=== PATIENT | female | born 1970 | race Caucasian/White ===

== ENCOUNTER 2019-11-29 14:48 | Emergency (ER) | payer BC, SELFPAY ==
[2019-11-29 14:50] VITALS: BP 127/78; PULSE 100; RESP 20; TEMP 36.5; O2SAT 98
--- NOTE | 2019-11-29 16:03 | ED.ALLEREA ---
HPI - Allergic Reaction General Chief complaint: Allergic Reaction <LIZBETH Barber Last Filed: 11/29/19 17:41> Stated complaint: Insect bite <LIZBETH Barber Last Filed: 11/29/19 17:41> Time Seen by Provider: 11/29/19 15:44 <LIZBETH Barber Last Filed: 11/29/19 17:41> Source: patient <LIZBETH Barber Last Filed: 11/29/19 17:41> Mode of arrival: ambulatory <LIZBETH Barber Last Filed: 11/29/19 17:41> Limitations: no limitations <LIZBETH Barber Last Filed: 11/29/19 17:41> History of Present Illness HPI narrative: This is a 49-year-old female that presents the emergency department for hives that started just prior to arrival. Reports she was walking out of her house to go to work and started to feel some burning of her left forearm. Reports she then noted hives to the area and itching. Reports she is starting to have some itching on the left side of her abdomen as well. Does not report any new soaps, lotions or detergents. No new medications. Denies fever, facial swelling, or shortness of breath. <LIZBETH Barber Last Filed: 11/29/19 17:41> Related Data Home medications: Home Medications Medication Instructions Recorded Confirmed No Home Medications 11/29/19 11/29/19 <LIZBETH Barber Last Filed: 11/29/19 17:41> Allergies/adverse reactions: Allergies Allergy/AdvReac Type Severity Reaction Status Date / Time strawberry Allergy Swelling Verified 11/29/19 15:29 of Lip/Tongue/Throat <LIZBETH Barber Last Filed: 11/29/19 17:41> Review of Systems Review of Systems: Narrative: CONSTITUTIONAL: Denies fever SKIN: Reports rash and itching. <LIZBETH Barber Last Filed: 11/29/19 17:41> All systems reviewed & are unremarkable except as noted in HPI and below <Johnna Vera PA-C - Last Filed: 11/29/19 17:41> PMFSH Past Medical History Medical History: Medical History (Updated 11/29/19 @ 17:41 by Johnna Vera PA-C) No active medical problems <Johnna Vera PA-C - Last Filed: 11/29/19 17:41> Social History Social History: Social History (Updated 11/29/19 @ 16:06 by Johnna Vera PA-C) Smoking status: Current every day smoker <Johnna Vera PA-C - Last Filed: 11/29/19 17:41> Exam Narrative: Exam Narrative: GENERAL: Well-appearing, well-nourished, and in no acute distress. HEAD: Normocephalic, atraumatic. No facial swelling EYES: EOMI. CHEST: Airway patient ABDOMEN: Soft, nontender, nondistended, normal active bowel sounds. EXTREMITIES: Normal range of motion. No edema. SKIN: Warm, dry. Wheals to the left forearm and left side of abdomen NEURO: No focal deficits. Alert and oriented x3. PSYCH: Normal mood and affect <Johnna Vera PA-C - Last Filed: 11/29/19 17:41> Course Vital Signs Vital signs: Vital Signs Temperature 97.7 F 11/29/19 14:50 Pulse Rate 100 11/29/19 14:50 Respiratory Rate 11/29/19 14:50 Blood Pressure 127/78 11/29/19 14:50 Pulse Oximetry 98 11/29/19 14:50 Temperature 97.7 F 11/29/19 14:50 Pulse Rate 100 11/29/19 14:50 Respiratory Rate 11/29/19 14:50 Blood Pressure 127/78 11/29/19 14:50 Pulse Oximetry 98 11/29/19 14:50 <Johnna Vera PA-C - Last Filed: 11/29/19 17:41> Vital Signs Temperature 97.7 F 11/29/19 14:50 Pulse Rate 100 11/29/19 14:50 Respiratory Rate 11/29/19 14:50 Blood Pressure 127/78 11/29/19 14:50 Pulse Oximetry 98 11/29/19 14:50 Temperature 97.7 F 11/29/19 14:50 Pulse Rate 100 11/29/19 14:50 Respiratory Rate 20 11/29/19 14:50 Blood Pressure 127/78 11/29/19 14:50 Pulse Oximetry 98 11/29/19 14:50 <Laureen Kelly MD - Last Filed: 11/29/19 18:33> MDM - Allergic Reaction MDM Narrative Medical decision making narrative: Patient presents to the emergency department for hives. Airway
[2019-11-29] MEDS: FAMOTIDINE 20 MG TABLET PO (16:07)
== END 2019-11-29 17:57 | disposition home or self-care (01) ==
PROVIDERS: Emergency Provider Emergency Medicine; PCP Nurse Practitioner Family
DX: L50.9 Urticaria, unspecified (principal); F17.200 Nicotine dependence, unspecified, uncomplicated
CPT/HCPCS: 99283; A9270

== ENCOUNTER 2020-02-01 19:30 | Emergency (ER) | payer BC, SELFPAY ==
--- NOTE | ~2020-02-01 | XR_ITS ---
EXAMINATION: XR wrist RT 2V EXAM DATE: 02/01/2020 19:48 INDICATION: Right metacarpal pain. No known recent injury provided at this time. TECHNIQUE: Frontal and lateral projections of the right wrist. There is no prior study for comparis on. FINDINGS: There are no acute fractures or dislocations identified. There is no subcutaneous gas. Th e soft tissue is unremarkable. 2 rings, on the 4th and 5th digits. There are no bony erosions ident ified. IMPRESSION: 1. Unremarkable XR wrist RT 2V exam. Reviewed, dictated and finalized at location A.
[2020-02-01 19:33] VITALS: BP 141/76; PULSE 89; RESP 16; TEMP 36.1; O2SAT 100
--- NOTE | 2020-02-01 20:24 | ED.UPPEXIN ---
HPI - Extremity Injury (Upper) General Chief Complaint: Extremity Injury, Upper Stated Complaint: R wrist pain Time Seen by Provider: 02/01/20 19:39 Source: patient Mode of arrival: ambulatory Limitations: no limitations History of Present Illness HPI narrative: Patient presents with chief complaint of right wrist discomfort to the dorsal aspect with gripping lifting and pulling intermittently over the past 6 months. Patient states sometimes when she does those actions she feels a shooting sensation in the center of her wrist down her arm. Patient denies direct trauma to her wrist. 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 Patient states she is not sure what to do with her wrist to help and improve. Patient has not discussed her symptoms with her primary care. Review of Systems Review of Systems: Narrative: CONSTITUTIONAL: Denies fever, chills, or sweats. EYES: Denies visual changes, redness, or discharge. ENT: Denies rhinorrhea, congestion, sore throat, or otalgia. CARDIOVASCULAR: Denies chest pain, palpitations, or edema. RESPIRATORY: Denies cough or dyspnea. GASTROINTESTINAL: Denies abdominal pain, nausea, vomiting, or diarrhea. GENITOURINARY: Denies dysuria or hematuria. SKIN: Denies rash or itching. MUSCULOSKELETAL: Reports right wrist pain denies back pain or myalgia. NEUROLOGIC: Denies headache, numbness, dizziness, or weakness. PSYCHIATRIC: Denies anxiety or depression. [facility] Family History Family History (Updated 05/12/16 @ 16:08 by DOCTOR UNKNOWN) Grandparent Asthma Family history of cardiovascular disease Family history of pancreatic cancer Family history of heart disease in male family member before age 55 Mother Family history of chronic obstructive pulmonary disease Family history of lung cancer Family history of congestive heart failure Social History Social History Smoking status: Heavy tobacco smoker Second hand tobacco smoke exposure: No Alcohol intake: never Gender identity (if verbalized by the patient): Female Exam Narrative: Exam Narrative: GENERAL: Well-appearing, well-nourished, and in no acute distress. HEAD: Normocephalic, atraumatic. EYES: PERRLA and EOMI. ENT: Nares clear, no rhinorrhea or epistaxis. Mucous membranes moist. NECK: Supple. No adenopathy or masses. No carotid bruits or JVD CHEST: No respiratory distress. No tachypnea or shallow respirations EXTREMITIES: No swelling appreciated to the right wrist. Patient reports tenderness to the dorsal aspect center area of right wrist. Tinel's and Phalen's negative. De Quervain's test negative. normal range of motion. No edema. Staff Educator strength intact. SKIN: Warm, dry, no rash. NEURO: No focal deficits. Alert and oriented x3. PSYCH: Normal mood and affect. Course Vital Signs Vital signs: Vital Signs Temperature 97 F L 02/01/20 19:33 Pulse Rate 89 02/01/20 19:33 Respiratory Rate 16 02/01/20 19:33 Blood Pressure 141/76 H 02/01/20 19:33 Pulse Oximetry 100 02/01/20 19:33 Temperature 97 F L 02/01/20 19:33 Pulse Rate 89 02/01/20 19:33 Respiratory Rate 16 02/01/20 19:33 Blood Pressure 141/76 H 02/01/20 19:33 Pulse Oximetry 100 02/01/20 19:33 MDM - Extremity Injury (Upper) MDM Narrative Medical decision making narrative: Patient declined work note with instructions to keep easy on the right wrist for the next week. Discussed with patient our ICE instructions and the need to follow-up with her primary care business performance specialist for reevaluation if symptoms persist. Patient denies having diabetes, intolerance to NSAIDs, ulcers, renal failure. Differential Diagnosis Differential diagnosis: Likely sprain and strain of wrist and fracture of wrist Imaging Data Radiologist's impression: ITS Impressions Wrist X-Ray 02/01/20 19:57 IMPRESSION: 1. Unremarkable XR wrist RT 2V exam. Discharge Plan Discharge Clinical Impression: Brandi
--- NOTE | 2020-02-01 20:42 | PC.NURSE ---
no wrist splint available-PA aware- 3 nohemy wrap applied
[2020-02-01 20:55] VITALS: BP 129/78; PULSE 81; RESP 18; O2SAT 97
== END 2020-02-01 20:55 | disposition home or self-care (01) ==
PROVIDERS: Emergency Provider Emergency Medicine; PCP Nurse Practitioner Family
DX: M77.9 Enthesopathy, unspecified (principal); F17.200 Nicotine dependence, unspecified, uncomplicated
CPT/HCPCS: 73100; 99283

== ENCOUNTER 2020-06-15 06:47 | Outpatient (NON) | payer BC, SELFPAY ==
[2020-06-16 01:24] LABS: SARS-CoV-2 RNA PCR Positive
== END 2020-06-15 06:48 ==
LOC: ANHCOVIDDT 06:47
PROVIDERS: PCP Nurse Practitioner Family; Visit Provider Nurse Practitioner Family
DX: U07.1 COVID-19 (principal)
CPT/HCPCS: 87635; C9803; U0003

== ENCOUNTER 2021-01-28 21:22 | Emergency (ER) | payer BC, SELFPAY ==
[2021-01-28] VITALS (10 sets, daily range): BP systolic 154–168; BP diastolic 84–94; PULSE 68–90; RESP 17–29; TEMP 36.6–37.4; O2SAT 97–100
--- NOTE | 2021-01-28 22:28 | ED.GENADULT ---
HPI - General Adult General Chief complaint: Upper Respiratory Infection Stated complaint: sinus infection, left side of face numb Time Seen by Provider: 01/28/21 22:17 History of Present Illness HPI narrative: Patient is a 50-year-old female presents to emergency department chief complaint of left-sided facial numbness. The patient reports that she has numbness that goes from the left side of her chin to her left ear. The patient states it began this afternoon patient reports she is currently being treated for sinusitis after she has been having pain in the left maxillary sinus area and has had clear nasal discharge. Patient reports her primary care physician started her on Augmentin and the patient reports that she has been compliant with the antibiotics. Patient denies fever denies chills reports that she has no focal motor deficits with this. Patient difficulty with extraocular motion. Changes in visual acuity Related Data Home Medications Medication Instructions Recorded Confirmed amoxicillin-pot clavulanate tablet 01/28/21 Allergies Allergy/AdvReac Type Severity Reaction Status Date / Time raspberry Allergy Swelling Verified 01/28/21 21:39 of Lip/Tongue/Throat strawberry Allergy Swelling Verified 01/28/21 21:39 of Lip/Tongue/Throat Review of Systems Review of Systems: A 10 system review of systems was completed on the patient and is negative except for what is stated in the HPI. Nursing and ancillary documentation was reviewed. [facility] Family History Family History Grandparent Asthma Family history of cardiovascular disease Family history of pancreatic cancer Family history of heart disease in male family member before age 55 Mother Family history of chronic obstructive pulmonary disease Family history of lung cancer Family history of congestive heart failure Social History Social History Smoking status: Heavy tobacco smoker Second hand tobacco smoke exposure: No Alcohol intake: never Gender identity (if verbalized by the patient): Female Exam Narrative: GENERAL: Well-appearing, well-nourished, and in no acute distress. HEAD: Normocephalic, atraumatic. EYES: PERRLA and EOMI. ENT: Nares clear, no rhinorrhea or epistaxis. Mucous membranes moist. NECK: Supple. CHEST: Clear to auscultation. No respiratory distress. HEART: Regular rate and rhythm. No murmur heard. Normal peripheral pulses. ABDOMEN: Soft, nontender, nondistended, normal active bowel sounds. EXTREMITIES: Normal range of motion. No edema. SKIN: Warm, dry, no rash. NEURO: No focal deficits. Alert and oriented x3. Slight decrease sensation in the V3 distribution of the trigeminal nerve PSYCH: Normal mood and affect. Course Vital Signs Vital signs: Vital Signs Temperature 37.4 C 01/28/21 21:27 Pulse Rate 88 01/28/21 21:27 Respiratory Rate 18 01/28/21 21:27 Blood Pressure 154/90 H 01/28/21 21:27 Pulse Oximetry 100 01/28/21 21:27 Temperature 37.4 C 01/28/21 21:27 Pulse Rate 72 01/28/21 22:16 Respiratory Rate 19 01/28/21 22:16 Blood Pressure 163/93 H 01/28/21 22:16 Pulse Oximetry 99 01/28/21 22:16 Medical Decision Making Vital Signs Vital Signs: Vital Signs Temperature 37.4 C 01/28/21 21:27 Pulse Rate 88 01/28/21 21:27 Respiratory Rate 18 01/28/21 21:27 Blood Pressure 154/90 H 01/28/21 21:27 Pulse Oximetry 100 01/28/21 21:27 Temperature 37.4 C 01/28/21 21:27 Pulse Rate 72 01/28/21 22:16 Respiratory Rate 19 01/28/21 22:16 Blood Pressure 163/93 H 01/28/21 22:16 Pulse Oximetry 99 01/28/21 22:16 Discharge Plan Discharge Clinical Impression: Trigeminal neuralgia of left side of face, Paresthesia Sinusitis Qualifiers: Sinusitis location: unspecified location Chronicity: acute Recurrence: not
== END 2021-01-28 23:05 | disposition home or self-care (01) ==
PROVIDERS: Emergency Provider Emergency Medicine; PCP Nurse Practitioner Family
DX: J01.90 Acute sinusitis, unspecified (principal); G50.0 Trigeminal neuralgia; F17.210 Nicotine dependence, cigarettes, uncomplicated
CPT/HCPCS: 99281

== ENCOUNTER → 2021-02-17 09:39 | Outpatient (CLI) | payer BC, SELFPAY ==
--- NOTE | ~2021-02-17 | MM_ITS ---
EXAMINATION: MM screening sang BI w chanel HISTORY: Screening mammogram TECHNIQUE: Craniocaudal and mediolateral oblique 3-D tomosynthesis images were obtained and synthetic 2-D images were generated. CAD analysis was submitted and interpreted. COMPARISON: No prior mammogram is available for comparison at this institution. BREAST PARENCHYMAL COMPOSITION: The breasts are heterogeneously dense, which may obscure small masses . FINDINGS: RIGHT BREAST: There are masses in the posterior third of the upper-outer quadrant breast. Position, t here is an asymmetry in the middle third of the lower breast 5.5 cm from the nipple on the craniocaud al view. LEFT BREAST: A mass is present in the posterior third outer breast 8 cm from the nipple. IMPRESSION: 1. Bilateral breast findings as described above. 2. Additional mammographic views and possible breast ultrasound are recommended. BI-RADS Category 0: Incomplete: Needs additional imaging evaluation. Reviewed, dictated and finalized at location A. IMPRESSION: 1. Bilateral breast findings as described above. 2. Additional mammographic views and possible breast ultrasound are recommended . BI-RADS Category 0: Incomplete: Needs additional imaging evaluation.
== END ==
PROVIDERS: PCP Nurse Practitioner Family; Visit Provider Nurse Practitioner Family
DX: Z12.31 Encounter for screening mammogram for malignant neoplasm of breast (principal); R92.8 Other abnormal and inconclusive findings on diagnostic imaging of breast
CPT/HCPCS: 77063; 77067

== ENCOUNTER 2021-02-24 09:35 | Outpatient (CLI) | payer BC, SELFPAY ==
--- NOTE | ~2021-02-24 | MMUS_ITS ---
EXAMINATION: MM diagnostic sang BI w chanel, US breast BI complete HISTORY: Follow-up breast asymmetries/masses TECHNIQUE: Additional 3-D tomosynthesis images of the breasts were performed and synthetic 2-D images were generated. CAD analysis was submitted and interpreted. High resolution complete bilateral breas t ultrasound was performed. COMPARISON: 02/17/2021 BREAST PARENCHYMAL COMPOSITION: Breast composed of scattered areas of fibroglandular density. FINDINGS: MAMMOGRAPHIC FINDINGS: There is focal asymmetry in the upper outer quadrant of the right breast anteriorly with possible arc hitectural distortion. No discrete associated mass. There are several masses in both breasts centered in the upper outer quadrants with central areas of lucency, most likely benign. ULTRASOUND: Right breast ultrasound: At 1:00, 3 cm from the nipple, there is a 4 mm cyst. At 7:00, 6 cm from the nipple, there is a 7 mm intramammary lymph node. At 10:00, 7 cm from the nipple, there is an 8 mm int ramammary lymph node. At 10:00, 5 cm from the nipple, there is a ill-defined poorly circumscribed mas s with posterior shadowing measuring approximately 1.5 cm. No internal vascularity. Left breast ultrasound: At 2:00, 5 cm from the nipple, there is a 5 mm cyst. At 2:00, 13 cm from the nipple, there is a 1.6 cm lymph node with normal fatty hilum. At 3:00, 7 cm from the nipple, there is a 9 mm intramammary lymph node. No suspicious masses in the left breast to suggest malignancy IMPRESSION: 1. Poorly circumscribed right breast mass at 10:00, 5 cm from the nipple with posterior shadowing. 2. Ultrasound-guided right breast biopsy recommended. BI-RADS category 4, suspicious findings. Reviewed, dictated and finalized at location A. IMPRESSION: 1. Poorly circumscribed right breast mass at 10:00, 5 cm from the nipple with p osterior shadowing. 2. Ultrasound-guided right breast biopsy recommended. BI-RADS category 4, suspicious findings.
== END 2021-02-24 09:36 ==
LOC: MICIMG 09:36
PROVIDERS: PCP Nurse Practitioner Family; Visit Provider Nurse Practitioner Family
DX: R92.8 Other abnormal and inconclusive findings on diagnostic imaging of breast (principal)
CPT/HCPCS: 76641; 77062; 77066; G0279

== ENCOUNTER 2021-03-17 10:02 | Outpatient (CLI) | payer BC, SELFPAY ==
--- NOTE | ~2021-03-17 | US_ITS ---
Consultation US DATE: 03/17/2021 10:59 INDICATION: Patient presented for ultrasound-guided biopsy at 10:00 where a poorly circumscribed righ t mass was reported on 02/24/2021 breast ultrasound examination. TECHNIQUE: Real-time imaging of right breast COMPARISON: 02/24/2021 bilateral complete breast ultrasound FINDINGS: I personally scanned the patient and was unable to identify any suspicious mass or suspicio us shadowing. 6 month ultrasound follow-up is recommended. IMPRESSION: BI-RADS Category 3: Probably benign Recommendation: 6 month follow right breast ultrasound examination is recommended Reviewed, dictated and finalized at Location A. Reviewed, dictated and finalized at location A. IMPRESSION: BI-RADS Category 3: Probably benign Recommendation: 6 month follow right breast ultrasound examination is recommend ed
== END 2021-03-17 10:03 | disposition home or self-care (01) ==
LOC: ANHIMG 10:04
PROVIDERS: PCP Nurse Practitioner Family; Visit Provider Nurse Practitioner Family
DX: R92.8 Other abnormal and inconclusive findings on diagnostic imaging of breast (principal)
CPT/HCPCS: 99199

== ENCOUNTER 2021-07-06 11:10 | Emergency (ER) | payer BC, SELFPAY ==
[2021-07-06 11:52] VITALS: BP 152/87; PULSE 76; RESP 18; TEMP 36.5; O2SAT 99
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
== END 2021-07-06 12:47 | disposition home or self-care (01) ==
PROVIDERS: Emergency Provider Nurse Practitioner Family; PCP Nurse Practitioner Family
DX: M54.6 Pain in thoracic spine (principal); F17.200 Nicotine dependence, unspecified, uncomplicated
CPT/HCPCS: 99213; G0463

== ENCOUNTER 2021-11-01 11:10 | Emergency (ER) | payer BC, SELFPAY ==
--- NOTE | 2021-11-01 11:30 | ED.URI ---
HPI - URI/Sore Throat General Chief Complaint: Ear Stated Complaint: ear/jaw pain,face pressure Time Seen by Provider: 11/01/21 11:34 Source: patient and RN notes reviewed Mode of arrival: ambulatory Limitations: no limitations History of Present Illness HPI Narrative: 51 y/o female presented for c/o left ear pain, onset yesterday. Endorses sinus congestion and drainage, with facial pressure and headache. Denies cough, sob, wheezing, n/v/d/f/c. Has not taken anything for symptoms. She is not boosted for covid, not vaccinated for the flu Related Data Allergies Allergy/AdvReac Type Severity Reaction Status Date / Time raspberry Allergy Swelling Verified 11/01/21 11:31 of Lip/Tongue/Throat strawberry Allergy Swelling Verified 11/01/21 11:31 of Lip/Tongue/Throat Review of Systems Review of Systems: CONSTITUTIONAL:denies malaise, chills, sweats, fever EYES: Denies visual changes, redness, or discharge ENT: Reports rhinorrhea, congestion, sinus pain, otalgia CARDIOVASCULAR: Denies chest pain, palpitations, edema RESPIRATORY: Reports cough, post nasal drainage. Denies dyspnea GASTROINTESTINAL: Denies abdominal pain, nausea, vomiting, diarrhea SKIN: Denies rash or itching MUSCULOSKELETAL: denies myalgia NEUROLOGIC: endorses headache PMFSH Past Medical History Medical History No active medical problems Family History Family History Grandparent Asthma Family history of cardiovascular disease Family history of pancreatic cancer Family history of heart disease in male family member before age 55 Mother Family history of chronic obstructive pulmonary disease Family history of lung cancer Family history of congestive heart failure Social History Social History Smoking status: Current every day smoker Second hand tobacco smoke exposure: No Alcohol intake: never Gender identity (if verbalized by the patient): Female Exam Narrative: GENERAL: Ill-appearing, nontoxic HEAD: Normocephalic EYES: conjunctivae clear ENT: Mucous membranes moist. bilateral canals erythematous, left canal swelling, TMs with dull light reflex bilaterally; no tragal tenderness. Oropharynx erythematous without lesions or exudate, no drooling, no hoarseness, no trismus, uvula midline. No tripod positioning, muffled voice, soft palate or pharyngeal wall bulging NECK: Supple. No lymphadenopathy CHEST: Clear to auscultation, breath sounds equal. No wheezing, rhonchi, rales, or stridor. HEART: Regular rate and rhythm. No murmur heard. SKIN: Warm, dry, no rash. NEURO: Alert and oriented x3. PSYCH: Normal mood and affect Course Course Emergency Course: Patient is aware of diagnosis, understands and agrees to treatment plan. Anticipatory guidance given. Patient agrees to follow-up as directed and is aware of reasons to seek care at the emergency department. Portions of this record may have been created with voice recognition software Level of Care: Express Care Visit Vital Signs Vital signs: reviewed MDM - URI/Sore Throat Differential Diagnosis Differential diagnosis: Likely upper respiratory infection, otitis media, sinusitis and viral infection Discharge Plan Discharge Clinical Impression: Otalgia of left ear Patient Disposition: Home, Self-Care Condition: Stable Instructions: Antibiotic Form, Ear Infection (ED) Additional Instructions: Recommend antihistamine such Zyrtec or Kristen during the day along with Flonase nasal spray, 1 spray in each nostril once daily until symptoms improve symptomatic treatment includes: rest, fluids, and increase humidity of the air at home. Recommend Tylenol and ibuprofen as directed on the bottle to reduce fever, pain Take antibiotics as directed. Start them if symptoms persist or worsen after try
[2021-11-01 11:32] VITALS: BP 167/90; PULSE 80; RESP 16; TEMP 36.6; O2SAT 100
== END 2021-11-01 11:45 | disposition home or self-care (01) ==
PROVIDERS: Emergency Provider Nurse Practitioner Family; PCP Nurse Practitioner Family
DX: H92.02 Otalgia, left ear (principal); F17.200 Nicotine dependence, unspecified, uncomplicated
CPT/HCPCS: 99213; G0463

== ENCOUNTER 2024-12-31 13:53 | Emergency (ER) | payer OTHER, SELFPAY ==
[2024-12-31 14:04] VITALS: BP 143/89; PULSE 83; RESP 20; TEMP 37.3; O2SAT 99
--- NOTE | 2024-12-31 14:23 | ED_ITS ---
HPI - URI/Sore Throat General Chief Complaint: Upper Respiratory Infection Stated Complaint: swollen jaw Time Seen by Provider: 12/31/24 14:24 Source: patient Mode of arrival: ambulatory Limitations: no limitations History of Present Illness HPI Narrative: 54 yo F presents with c/o sinus congestion, PND for approx. 1 wk. States symptoms started after her PCP told her she didnt need to take her claritin anymore. Pt states now my teeth are all sore and i gave myself a sinus infection from stopping my meds. afebrile. Uses Flonase daily. All systems reviewed and negative except as noted above. Related Data Allergies Allergy/AdvReac Type Severity Reaction Status Date / Time raspberry Allergy Swelling Verified 12/31/24 14:07 of Lip/Tongue/Throat strawberry Allergy Swelling Verified 12/31/24 14:07 of Lip/Tongue/Throat Review of Systems Review of Systems: CONSTITUTIONAL: Denies fever, chills, or sweats. EYES: Denies visual changes, redness, or discharge. ENT: Reports rhinorrhea, congestion, postnasal drainage, sinus pressure. Denies sore throat, or otalgia. CARDIOVASCULAR: Denies chest pain, palpitations, or edema. RESPIRATORY: Denies cough or dyspnea. GASTROINTESTINAL: Denies abdominal pain, nausea, vomiting, or diarrhea. GENITOURINARY: Denies dysuria or hematuria. SKIN: Denies rash or itching. MUSCULOSKELETAL: Denies back pain, joint pain, or myalgia. NEUROLOGIC: Denies headache, numbness, or weakness. PSYCHIATRIC: Denies anxiety or depression. All other systems reviewed are negative, except as documented in HPI. [facility] Past Medical History Medical History No active medical problems Family History Family History Grandparent Asthma Family history of cardiovascular disease Family history of pancreatic cancer Family history of heart disease in male family member before age 55 Mother Family history of chronic obstructive pulmonary disease Family history of lung cancer Family history of congestive heart failure Social History Social History Smoking status: Current every day smoker Second hand tobacco smoke exposure: No Alcohol intake: never Gender identity (if verbalized by the patient): Female Comments At time of signature, agree with nursing past medical, surgical, social and family history. There is no relevant family history pertinent to the presenting complaint. Exam Narrative: GENERAL: This is a well-nourished, well-developed patient, in no apparent distress. HEAD: normocephalic, atraumatic. EYES: PERRL. Sclera clear/white. Vision is grossly intact. EARS: External ears normal, auditory canals clear and without drainage, TMs normal without perforation. Hearing grossly intact. NOSE: External nose normal with purulent nasal drainage, congestion, erythema to bilateral nares. Maxillary sinus tenderness on palpation THROAT: Mucous membranes moist, mild erythema to posterior pharynx with postnasal drainage NECK: Neck supple, non-tender without lymphadenopathy, masses or thyromegaly. CARDIOVASCULAR: Regular rate and rhythm without murmurs, gallops, or rubs. RESPIRATORY: Clear to auscultation. Breath sounds equal bilaterally. No wheezes, rales, or rhonchi. SKIN: warm, Dry, intact with no suspicious lesions or rash, good texture and turgor. NEURO: awake, alert, and oriented to person, place and time. There were no obvious focal neurologic abnormalities. EXTREMITIES: No joint tenderness, effusion, or edema noted. Course Course Level of Care: Express Care Visit Vital Signs Vital signs: Vital Signs Temperature 37.3 C 12/31/24 14:04 Pulse Rate 83 12/31/24 14:04 Respiratory Rate 20 12/31/24 14:04 Blood Pressure 143/89 H 12/31/24 14:04 Pulse Oximetry 99 12/31/24 14:04 Oxygen Delivery Room Air 12/31/24 14:04 Temperature 37.3 C 12/31/24 14:04 Pulse Rate 83 12/31/24 14:04 Respiratory Rate 20 12/31/24 14:04 Blood Pressure 143/89 H 12/31/24 14:04 Pulse Oximetry 99 12/31/24 14:04 Oxygen Delivery Room Air 12/31/24 14:04 reviewed MDM - URI/Sore Throat MDM Narrative Medical decision making narrative: will treat with antibiotic for bacterial sinusitis due to duration of symptoms and exam. Patient is well-appearing, nontoxic. Agrees with plan of care. Discharge Plan Discharge Clinical Impression: Acute bacterial sinusitis Patient Disposition: Home Condition: Stable Instructions: Antibiotic Form, Sinusitis (ED) Additional Instructions: Take antibiotic as prescribed until gone. Take a daily antihistamine such as Claritin or Zyrtec. Continue Flonase. See your doctor if not improving. Patient Language: Mongolian Prescriptions: New amoxicillin-pot clavulanate 875-125 mg tablet 1 tablet PO Q12H 10 Days Qty: 20 0RF Follow-up/Referrals: Shadia,Ketty [Other] Time of Disposition: 14:33
== END 2024-12-31 14:40 | disposition home or self-care (01) ==
PROVIDERS: Emergency Provider Nurse Practitioner Family
DX: J01.90 Acute sinusitis, unspecified (principal); F17.200 Nicotine dependence, unspecified, uncomplicated
CPT/HCPCS: 99213; G0463